=== PATIENT | female | born 1980 | race American Indian/Alaskan Native ===

== ENCOUNTER 2017-11-27 11:11 | Outpatient (CLI) | payer OTHER | END 2017-11-27 11:32 | disposition home or self-care (01) | LOC: RAD 501 11:11 | DX: M54.5 Low back pain (principal) ==

== ENCOUNTER 2019-02-08 10:39 | Outpatient (CLI) | payer OTHER | END 2019-02-08 10:45 | disposition home or self-care (01) | LOC: SONOGRAMA 10:39 | DX: E04.2 Nontoxic multinodular goiter (principal) ==

== ENCOUNTER 2020-11-03 11:38 | Outpatient (CLI) | payer OTHER | END 2020-11-03 11:49 | disposition home or self-care (01) | LOC: SONOGRAMA 11:38 | PROVIDERS: ATTEND Internal Medicine Endocrinology, Diabetes & Metabolism | DX: E04.1 Nontoxic single thyroid nodule (principal); E07.89 Other specified disorders of thyroid; E04.2 Nontoxic multinodular goiter ==

== ENCOUNTER 2021-05-07 09:00 | Outpatient (CLI) | payer OTHER | END 2021-05-07 09:30 | disposition home or self-care (01) | LOC: PPH VACUNA 09:00 | PROVIDERS: ATTEND Emergency Medicine Pediatric Emergency Medicine | DX: Z23 Encounter for immunization (principal) ==

== ENCOUNTER 2021-12-02 08:34 | Outpatient (CLI) | payer OTHER | END 2021-12-02 08:36 | disposition home or self-care (01) | LOC: SONOGRAMA 08:34 | PROVIDERS: ATTEND Internal Medicine Endocrinology, Diabetes & Metabolism | DX: E04.2 Nontoxic multinodular goiter (principal) ==

== ENCOUNTER → 2022-03-21 | Outpatient (CLI) | payer OTHER | END | disposition home or self-care (01) | LOC: RAD 13:00 | PROVIDERS: ATTEND Physical Medicine & Rehabilitation | DX: M25.561 Pain in right knee (principal); S89.82XA Other specified injuries of left lower leg, initial encounter ==